=== PATIENT | male | born 1985 | race Caucasian/White ===

== ENCOUNTER 2018-01-20 05:16 | Emergency (ER) | payer BC ==
--- OUTSIDE RECORDS SUMMARY | 2018-01-20 05:18 | XMS REPORT | Continuity of Care Document ---
:1985 Author Organization [facility] Care Team Providers Name Role Phone MATTEO POPE Admitting Physician MATTEO POPE Attending Physician LISANDRO CHASE Primary Care Physician ROBERTO GASTELUM Consulting Physician Hospital Admission Diagnosis Code Admission Diagnosis Date 12091248 Dorsalgia Social History Element Code Description Smoking Start Date End Date Description Status Code System Smoking Status 531249292 Never smoker SNOMED-CT Problems Code Code System Problem Name Start Date End Date Status 51074287 SNOMED-CT Kidney stone 2018 Active LEFT TESTICLE & 11/11/2014 Active LEFT FLANK PAIN 215845564 SNOMED-CT Nausea 11/11/2014 Active 698294316 SNOMED-CT Asthma Unknown Active 34737499 SNOMED-CT Kidney stone Unknown Active Medications RxNorm Medication Dose Route Instructions Indications Start End Status Date Date 613826 Acetaminophen 300 1 tablet Oral orally every pain Active MG / Codeine 6 hours as Phosphate 15 MG needed. Oral Tablet 166770 Hyoscyamine 0.125 Oral orally every dyspepsia Active milligram 4 hours as needed. 987115 Acetaminophen 300 1 tablet Oral orally every No MG / Codeine 8 hours Longer Phosphate 30 MG Active Oral Tablet 641977 Hyoscyamine 0.125 Oral orally every dyspepsia No milligram 3 hours as Longer needed. Active 708777 Ondansetron 4 MG 4 Oral orally every No Oral Tablet milligram 8 hours (0 Longer hours) Active 036614 Sulfamethoxazole 1 tablet Oral orally 2 No 800 MG / times per day Longer Trimethoprim 160 Active MG Oral Tablet 548435 Tamsulosin 0.4 Oral orally every No hydrochloride 0.4 milligram day Longer MG Oral Capsule Active 559334 tramadol 50 Oral orally every No hydrochloride 50 milligram 4 hours (5 Longer MG Oral Tablet day) Active Allergies No Known Allergies Results Laboratory Results Order: CMP COMPREHENSIVE METABOLIC PANEL LOINC Test Result Flag Range Unit Date 2350-7 91 75-110 mg/dl 03/17/2017 1Glucose:MCnc:Pt 06:32 :Urine:Qn 3094-0 1Urea 12 6.0-17.0 mg/dl 03/17/2017 nitrogen:MCnc:Pt 06:32 :Ser/Plas:Qn 2160-0 1.1 0.4-1.2 mg/dl 03/17/2017 1Creatinine:MCnc 06:32 :Pt:Ser/Plas:Qn 2951-2 144 137-145 mmol/l 03/17/2017 1Sodium:SCnc:Pt: 06:32 Ser/Plas:Qn 2823-3 4 3.5-5.0 mmol/l 03/17/2017 1Potassium:SCnc: 06:32 Pt:Ser/Plas:Qn 2075-0 106 98-107 mmol/l 03/17/2017 1Chloride:SCnc:P 06:32 t:Ser/Plas:Qn 8-9 31 H 22-30 mmol/l 03/17/2017 1Carbon 06:32 dioxide:SCnc:Pt: Ser/Plas:Qn 85675-6 9.3 8.4-10.2 mg/dl 03/17/2017 1Calcium:MCnc:Pt 06:32 :Ser/Plas:Qn 2885-2 6.4 5.1-8.7 gm/dl 03/17/2017 1Protein:MCnc:Pt 06:32 :Ser/Plas:Qn 1751-7 3.7 3.5-4.6 gm/dl 03/17/2017 1Albumin:MCnc:Pt 06:32 :Ser/Plas:Qn 1A/G 1.4 1.1-2.2 % 03/17/2017 Ratio 06:32 1920-8 22 11-36 U/L 03/17/2017 1Aspartate 06:32 aminotransferase :CCnc:Pt:Ser/Jose Luis s:Qn 1742-6 32 11-40 U/L 03/17/2017 1Alanine 06:32 aminotransferase :CCnc:Pt:Ser/Jose Luis s:Qn 6768-6 53 47-114 U/L 03/17/2017 1Alkaline 06:32 phosphatase:CCnc :Pt:Ser/Plas:Qn 1975-2 0.5 0.2-1.2 mg/dl 03/17/2017 1Bilirubin:MCnc: 06:32 Pt:Ser/Plas:Qn 2.7 2.3-3.5 gm/dl 03/17/2017 1Globulin 06:32 9.5 8.4-10.2 mg/dl 03/17/2017 1Calcium, 06:32 Corrected Note: Various formulas exist for corrected serum calcium results, each yielding different values. This corrected result was based on the formula: Corrected Calcium=SerumCalcium + [0.8 * ( 4 - SerumAlbumin)] 1EGFR >60 mL/min/1.73m^2 03/17/2017 06:32 if 1EGFR >60 mL/min/1.73m^2 03/17/2017 06:32 if Non- Note: Estimated Glomerular Filtration Rate (eGFR) Reference Intervals Decision Points for 18 years and older and average body mass: >=60 Does not exclude kidney disease. 30 - 59 Suggests moderate chronic kidney disease and indicates the need for further investigation including assessment of proteinuria and cardiovascular factors. < 30 Usually indicates a need for referral for assessment and management of chronic kidney failure. Performing Lab Footnotes:[address] [place] [address] - [id number] - [address] [address] [facility] - MD: DIRECTOR JAMMIE HANNON__ ____ Order: HISTOLOGY RESULT LOINC Test Result Flag Range Unit Date 1 03/16/2017 08:[address] [place] [address] 03/16/2017 08:35 1 [place], [place] [address] 03/16/2017 08:35 1 Fax: 03/16/2017 08:35 1 [facility] #: [id number] Surgical First Assistant: 03/16/2017 08:35 Jammie Hannon M.D. 1 Surgical Pathology Consultation Report 03/16/2017 08:35 1 Patient Name: JAMMIE HORVATH Case #: 03/16/2017 08:35 S18-7 Med. Rec. #: [id number] Location: 03/16/2017 08:35 1 [id number] Surgery Date: 03/15/2017 : 03/16/2017 08:35 1985 (Age: 31) Account #: [id number] Received: 03/16/2017 Gender: 03/16/2017 08:35 M Copy to : Reported: 03/17/2017 1 Physician(s): Roberto Gastelum 03/16/2017 08:35 1 03/16/2017 08:35 1 Specimen(s) Received 03/16/2017 08:35 1 A: Bladder, washing 03/16/2017 08:35 1 Final Pathologic Diagnosis 03/16/2017 08:35 1 Bladder, washings (cytospin): 03/16/2017 08:35 1 - ADEQUATE FOR EVALUATION. 03/16/2017 08:35 1 - NO EVIDENCE OF HIGH-GRADE 03/16/2017 08:35 UROTHELIAL CARCINOMA. 1 - CHANGES COMPATIBLE WITH 03/16/2017 08:35 INSTRUMENTATION EFFECT AND REACTIVE 1 EPITHELIAL 03/16/2017 08:35 1 CHANGES ASSOCIATED WITH LITHIASIS. 03/16/2017 08:35 1 - POLARIZABLE CRYSTAL MATERIAL, 03/16/2017 08:35 ACUTE INFLAMMATORY CELLS AND BLOOD. 1 Electronically Signed Out 03/16/2017 08:35 1 ka/03/16/2017 Tata Arredondo MD, Board 03/16/2017 08:35 Certified in Anatomic Pathology 1 03/16/2017 08:35 1 Clinical History 03/16/2017 08:35 1 Kidney stone, ureteral stone. 03/16/2017 08:35 1 Gross Description 03/16/2017 08:35 1 The specimen is labeled bladder 03/16/2017 08:35 washings and consists of 7.5 mL of clear 1 yellow fluid from which cytospin is 03/16/2017 08:35 prepared. 1 Tata Arredondo MD, Board Certified 03/16/2017 08:35 in Anatomic Pathology 1 03/16/2017 08:35 1 Microscopic Description 03/16/2017 08:35 1 There are small monolayer sheets, 03/16/2017 08:35 pseudopapillary clusters and single 1 occasionally binucleated 03/16/2017 08:35 urothelial/umbrella cells. The urothelial cells 1 are 03/16/2017 08:35 1 characterized by a polygonal to 03/16/2017 08:35 columnar shape with relatively uniform 1 oval 03/16/2017 08:35 1 nuclei with smooth nuclear membranes, 03/16/2017 08:35 fine evenly distributed chromatin 1 with 03/16/2017 08:35 1 inconspicuous nucleoli and moderate 03/16/2017 08:35 amounts of cytoplasm. The background 1 shows 03/16/2017 08:35 1 scattered inflammatory cells, blood as 03/16/2017 08:35 well as polarizable crystal 1 material. 03/16/2017 08:35 1 Billing Fee Code(s): A; 72655 03/16/2017 08:35 Performing Lab Footnotes:[address] [place] [address] - [id number] - 1201 [facility] [address] [place] [address] [facility] - MD: DIRECTOR JAMMIE HANNON__ ____ Order: BMP BASIC METABOLIC PANEL LOINC Test Result Flag Range Unit Date 2350-7 156 H 75-110 mg/dl 03/16/2017 1Glucose:MCnc:P 07:12 t:Urine:Qn 3094-0 1Urea 14 6.0-17.0 mg/dl 03/16/2017 nitrogen:MCnc:P 07:12 t:Ser/Plas:Qn 2160-0 1.2 0.4-1.2 mg/dl 03/16/2017 1Creatinine:MCn 07:12 c:Pt:Ser/Plas:Q n 2951-2 141 137-145 mmol/l 03/16/2017 1Sodium:SCnc:Pt 07:12 :Ser/Plas:Qn 2823-3 3.9 3.5-5.0 mmol/l 03/16/2017 1Potassium:SCnc 07:12 :Pt:Ser/Plas:Qn 2075-0 104 98-107 mmol/l 03/16/2017 1Chloride:SCnc: 07:12 Pt:Ser/Plas:Qn 8-9 29 22-30 mmol/l 03/16/2017 1Carbon 07:12 dioxide:SCnc:Pt :Ser/Plas:Qn 92616-7 9.6 8.4-10.2 mg/dl 03/16/2017 1Calcium:MCnc:P 07:12 t:Ser/Plas:Qn 1EGFR >60 mL/min/1.73 03/16/2017 if m^2 07:12 [place] 1EGFR >60 mL/min/1.73 03/16/2017 if Non- m^2 07:12 [place] Note: Estimated Glomerular Filtration Rate (eGFR) Reference Intervals Decision Points for 18 years and older and average body mass: >=60 Does not exclude kidney disease. 30 - 59 Suggests moderate chronic kidney disease and indicates the need for further investigation including assessment of proteinuria and cardiovascular factors. < 30 Usually indicates a need for referral for assessment and management of chronic kidney failure. Performing Lab Footnotes:[address] [place] [address] - [id number] - [address] [address] [facility] - MD: DIRECTOR JAMMIE HANNON__ ____ Order: CBC PLATELET AUTO DIFF LOINC Test Result Flag Range Unit Date 58221-5 9.37 4.80-10.80 10^3/ul 03/16/2017 1Leukocytes^^correc 07:12 daija for nucleated erythrocytes:NCnc:P t:Bld:Qn:Automated count 789-8 4.54 L 4.70-6.10 10^6/ul 03/16/2017 1Erythrocytes:NCnc: 07:12 Pt:Bld:Qn:Automated count 718-7 14.1 14.0-18.0 gm/dl 03/16/2017 1Hemoglobin:MCnc:Pt 07:12 :Bld:Qn 4544-3 42.2 42.0-50.0 % 03/16/2017 1Hematocrit:VFr:Pt: 07:12 Bld:Qn:Automated count 787-2 93 80.0-94.0 fL 03/16/2017 1Erythrocyte mean 07:12 corpuscular volume:EntVol:Pt:RB C:Qn:Automated count 785-6 31.1 H 27.0-31.0 pg 03/16/2017 1Erythrocyte mean 07:12 corpuscular hemoglobin:EntMass: Pt:RBC:Qn:Automated count 786-4 33.4 33.0-37.0 gm/dl 03/16/2017 1Erythrocyte mean 07:12 corpuscular hemoglobin concentration:MCnc: Pt:RBC:Qn:Automated count 788-0 12 11.5-14.5 % 03/16/2017 1Erythrocyte 07:12 distribution width:Ratio:Pt:RBC: Qn:Automated count 777-3 356 130-400 10^3/ul 03/16/2017 1Platelets:NCnc:Pt: 07:12 Bld:Qn:Automated count 45891-1 1Platelet 10.8 A 7.4-10.4 fL 03/16/2017 mean 07:12 volume:EntVol:Pt:Bl d:Qn:Automated count Note: 'NOT MEASURED' RESULTS ARE DISPLAYED WHEN THE INSTRUMENT HAS A SUPPRESSED OR UNREPORTABLE RESULT. THIS WILL MOST OFTEN HAPPEN WITH THE MPV WHEN THERE IS AN ABNORMAL PLATELET DISTRIBUTION DUE TO A CRITICAL LOW VALUE OR PLATELET CLUMPING. THE RDW MAY BE SUPPRESSED IF THERE ARE MULTIPLE PEAKS PRESENT ON THE RBC HISTOGRAM. IN THIS CASE, A MANUAL REVIEW OF THE SLIDE WILL BE PERFORMED, AND RBC MORPHOLOGY WILL BE NOTED ON THE REPORT. 770-8 1Neutrophils/100 82.3 H 42.0-75.0 % 03/16/2017 leukocytes:NFr:Pt:Bld:Qn:Automated 07:12 count 736-9 1Lymphocytes/100 15.2 13.0-42.0 % 03/16/2017 leukocytes:NFr:Pt:Bld:Qn:Automated 07:12 count 5905-5 1Monocytes/100 1.9 L 4.0-14.0 % 03/16/2017 leukocytes:NFr:Pt:Bld:Qn:Automated 07:12 count 713-8 1Eosinophils/100 0.2 L 1.0-3.0 % 03/16/2017 leukocytes:NFr:Pt:Bld:Qn:Automated 07:12 count 706-2 1Basophils/100 0.1 L 1.0-3.0 % 03/16/2017 leukocytes:NFr:Pt:Bld:Qn:Automated 07:12 count 1IG% 0.3 0.0-0.4 % 03/16/2017 07:12 Performing Lab Footnotes:[address] [place] [address] - [id number] - [address] [place] [address] [facility] - MD: DIRECTOR JAMMIE HANNON__ ____ Order: CULTURE URINE COLONY COUNT LOINC Test Result Flag Range Unit Date Specimen: Urine Specimens 03/15/2017 13:40 Collected: 03/15/2017 13:40 03/15/2017 13:40 03/15/2017 13:40 Status: Final Last Updated: 03/15/2017 13:40 03/18/2017 07:08 03/15/2017 13:40 (1) URINE CS 03/15/2017 13:40 03/15/2017 13:40 03/15/2017 13:40 03/15/2017 13:40 Culture Result (Final) (Final) 03/15/2017 13:40 No Growth After 48 Hours 03/15/2017 13:40 03/15/2017 13:40 03/15/2017 13:40 Order: CBC - HEMOGRAM ONLY LOINC Test Result Flag Range Unit Date 01046-3 9.39 4.80-10.80 10^3/ul 03/14/2017 1Leukocytes^^correc 14:15 daija for nucleated erythrocytes:NCnc:P t:Bld:Qn:Automated count 789-8 4.74 4.70-6.10 10^6/ul 03/14/2017 1Erythrocytes:NCnc: 14:15 Pt:Bld:Qn:Automated count 718-7 15.1 14.0-18.0 gm/dl 03/14/2017 1Hemoglobin:MCnc:Pt 14:15 :Bld:Qn 4544-3 43.1 42.0-50.0 % 03/14/2017 1Hematocrit:VFr:Pt: 14:15 Bld:Qn:Automated count 787-2 90.9 80.0-94.0 fL 03/14/2017 1Erythrocyte mean 14:15 corpuscular volume:EntVol:Pt:RB C:Qn:Automated count 785-6 31.9 H 27.0-31.0 pg 03/14/2017 1Erythrocyte mean 14:15 corpuscular hemoglobin:EntMass: Pt:RBC:Qn:Automated count 786-4 35 33.0-37.0 gm/dl 03/14/2017 1Erythrocyte mean 14:15 corpuscular hemoglobin concentration:MCnc: Pt:RBC:Qn:Automated count 788-0 11.9 11.5-14.5 % 03/14/2017 1Erythrocyte 14:15 distribution width:Ratio:Pt:RBC: Qn:Automated count 777-3 354 130-400 10^3/ul 03/14/2017 1Platelets:NCnc:Pt: 14:15 Bld:Qn:Automated count 80090-2 1Platelet 10.4 A 7.4-10.4 fL 03/14/2017 mean 14:15 volume:EntVol:Pt:Bl d:Qn:Automated count Note: 'NOT MEASURED' RESULTS ARE DISPLAYED WHEN THE INSTRUMENT HAS A SUPPRESSED OR UNREPORTABLE RESULT. THIS WILL MOST OFTEN HAPPEN WITH THE MPV WHEN THERE IS AN ABNORMAL PLATELET DISTRIBUTION DUE TO A CRITICAL LOW VALUE OR PLATELET CLUMPING. THE RDW MAY BE SUPPRESSED IF THERE ARE MULTIPLE PEAKS PRESENT ON THE RBC HISTOGRAM. IN THIS CASE, A MANUAL REVIEW OF THE SLIDE WILL BE PERFORMED, AND RBC MORPHOLOGY WILL BE NOTED ON THE REPORT. Performing Lab Footnotes:[address] [place] [address] - [id number] - [address] [facility] [address] [place] [address] [facility] - MD: DIRECTOR JAMMIE HANNON__ ____ Order: UA URINALYSIS WITH MICROSCOPY LOINC Test Result Flag Range Unit Date 5778-6 YELLOW 03/14/2017 1Color:Type: 12:10 Pt:Urine:Nom 5767-9 CLEAR 03/14/2017 1Appearance: 12:10 Aper:Pt:Urin e:Nom 2349-9 NEGATIVE NEGATIVE 03/14/2017 1Glucose:ACn 12:10 c:Pt:Urine:O rd 5770-3 NEGATIVE NEGATIVE 03/14/2017 1Bilirubin:A 12:10 Cnc:Pt:Urine :Ord:Test strip 2514-8 NEGATIVE NEGATIVE 03/14/2017 1Ketones:ACn 12:10 c:Pt:Urine:O rd:Test strip 5811-5 1.010 A 1.005-1.030 03/14/2017 1Specific 12:10 gravity:Rden :Pt:Urine:Qn :Test strip 5794-3 LARGE A NEGATIVE 03/14/2017 1Hemoglobin: 12:10 ACnc:Pt:Urin e:Ord:Test strip 5803-2 7.0 A 4.5-8.0 03/14/2017 1pH:LsCnc:Pt 12:10 :Urine:Qn:Te st strip 07087-4 NEGATIVE NEGATIVE 03/14/2017 1Protein:ACn 12:10 c:Pt:Urine:O rd:Test strip 5818-0 0.2 0.2 03/14/2017 1Urobilinoge 12:10 n:ACnc:Pt:Ur ine:Ord:Test strip 5802-4 NEGATIVE NEGATIVE 03/14/2017 1Nitrite:ACn 12:10 c:Pt:Urine:O rd:Test strip 5799-2 NEGATIVE NEGATIVE 03/14/2017 1Leukocyte 12:10 esterase:ACn c:Pt:Urine:O rd:Test strip 5821-4 5-10 A 0-5 03/14/2017 1Leukocytes: 12:10 Naric:Pt:Uri ne sed:Qn:Micro scopy.light. HPF 62658-2 TNTC A 0-5 03/14/2017 1Erythrocyte 12:10 s:Naric:Pt:U rine sed:Qn:Micro scopy.light. [facility] [address]-8 None Seen A 0-10 03/14/2017 1Epithelial 12:10 cells.[place] us:Naric:Pt: Urine sed:Qn:Micro scopy.light. HPF 5769-5 None Seen None Seen,Trace 03/14/2017 1Bacteria:Na 12:10 hardeep:Pt:Urine sed:Qn:Micro scopy.light. HPF Performing Lab Footnotes:[address] [place] [address] - [id number] - [address] [facility] [address] [place] [address] [facility] - MD: DIRECTOR JAMMIE HANNON__ ____ Radiology Results Order: [id number] CT ABDOMEN/PELVIS W/O CONTRASTExam Completion Date:03/14/2017 12:16Procedure: CT ABDOMEN/PELVIS W/O CONTRAST Exam Date: 03/14/2017 12:16 PMOrdering Provider: JOSY KELLYClinical Indication: abd painComparison: NoneTechnique: Using a helical scanner, sequential axial imaging of the abdomen andpelvis was obtained without the administration of oral or IV contrast. The examextended from the level of the lung bases superiorly to the level of the pubicsymphysis inferiorly. 2-D sagittal and coronal reconstructed images wereobtained. This exam was performed according to the departmentaldose-optimization program which includes automated exposure control, adjustmentof the mA and/or kV according to patient size and/ or use of iterativereconstruction techniques.Findings: The lung bases are clear. No basilar consolidation or effusion.The liver is normal in size and density. Hepatic contour is normal. There are nohepatic masses. No intrahepatic ductal dilatation.The gallbladder is normal in size and density. There is no evidence ofcholelithiasis or cholecystitis by CT criteria.The spleen is normal in size and density. There are no intrinsic splenic masses.There is no evidence of a subcapsular hematoma or fluid collection.The pancreas is normal in size and density. There are no pancreaticcalcifications or masses. There is no pancreatic ductal dilatation.The adrenal glands are normal in size bilaterally. There are no adrenal massesbilaterally.The right kidneyis normal in size and shape.There is a calculus in an interpolar calyx of the right kidney anteriorlymeasuring 5 mm in diameter.No other right renal or ureteral calculi.The right renal masses or hydronephrosis.The left kidney is enlarged with mild perinephric stranding.There is a calculus in the distal left ureter at the UVJ measuring 5-6 mm indiameter.There is moderate left hydronephrosis and hydroureter.There is a calculus in an interpolar calyx anteriorly measuring 3 mm indiameter.No other left renal calculi.No left renal masses.Aorta is normal in size and diameter. There is no aneurysm. The IVCis normal in size and location.There is no lymphadenopathy in the abdomen, pelvis, or either inguinal region.There is no small or large bowel distention. There is no bowel thickening. Thereare no inflammatory changes in the abdomen or pelvis.The appendix is visualized and normal in diameter. There is no periappendicealsoft tissue stranding. No CT findings of appendicitis.Urinary bladder has a normal appearance.The prostate gland is normal in size.No inguinal masses.There is no skeletal lesion.IMPRESSION: 1. 5-6 mm calculus in the distal left ureter at the UVJ with moderate lefthydronephrosis and hydroureter. Postobstructive change of the left kidney.2. Bilateral nephrolithiasis.3. No other inflammatory change in the abdomen or pelvis.4. Exam otherwise negative.This final report was electronicallysigned by Dr Chavez Mcclain MD 03/14/201712:58 PMDictated By: CHAVEZ MCCLAIN.Date: 03/14/2017 13:04 Vital Signs Vitals Value Date Body Temperature 97 F 03/17/2017 Respiratory Rate 18 03/17/2017 O2% BldC Oximetry 96 03/17/2017 BP Systolic 129 mmHg 03/17/2017 BP Diastolic 76 mmHg 03/17/2017 Weight Measured 188.71 lbs 03/17/2017 BSA (Body Surface Area) 1.55527 03/14/2017 BMI (Body Mass Index) 30.6 03/14/2017 Height 66 in 03/14/2017 Plan of Care No data in the system Procedures Code Code System Procedure Name Target Site Date of Procedure FL RETROGRADE 03/15/2017 12:38 PYELOG [id number] ICD10 DILATION EMILY 03/15/2017 [place] DEVICE ENDO [id number] ICD10 EXTIRPATION 03/15/2017 MATTER LT URETER ENDO [id number] ICD10 FLUORO KIDNEYS 03/15/[address] 03/14/2017 13:04 ABDOMEN/PELVIS W/O CONTRAST Encounters Date Code Diagnosis Status [facility] - 302241961 HYDRONPHROS RENL&URETRL Active CALCUL OBST Immunizations Vaccine Code Code System Vaccine Name Date Status 88 CVX influenza Completed virus vaccine, NOS Functional Status Code Functional/Cognitive Code System Date Status Condition 239433949 No speech problem SNOMED-CT 03/17/2017 Active (situation) 160636366 Firm pressure touch, SNOMED-CT 03/16/2017 Active function (observable entity) 765709817 Orientated SNOMED-CT 03/17/2017 Active 592993672 Orientated SNOMED-CT 03/17/2017 Active 632544515 Orientated SNOMED-CT 03/17/2017 Active 555172592 Oriented to person SNOMED-CT 03/17/2017 Active 24150282 Normal vision SNOMED-CT 03/14/2017 Active Hospital Discharge Instructions PsychosocialAssistance RequiredNonePatient/Family ConcernsNoneEmotional StateCalmHousing TypeHouseEmotional StatePleasantDischarge InstructionsDischarge DiagnosisARF, renal stone, bilateral stent placementDate/ Time of Follow Up Appt # 11:15Physician Name for Follow Up Appt # 1Follow up with Dr. Gastelum on March 24 at 11:15am. Call for any questions or concerns. [phone] VaccineDoes Not Meet CriteriaIV Removed DateReferral RequiredNoneActivity Level>No driving or strenuous activity& #62;Drink LOTS of water>blood in urine is normal>some discomfort is normal>STENTS MUST BE REMOVED WITHIN 4 WEEKS!!OtherMedicationsContinue Present MedicationsPrescriptions GivenTake all medications as listed on your Discharge Medication List as directedDO NOT STOP taking your medicine(s) until directed by your doctor.DietRegularDischarge InstructionsPatient education providedFollow Up CareYesScheduled AppointmentWritten Discharge Plan given to the Patient at the time of discharge contains:Reason for hospitalizationDischarge medications including what medications to take, how to take them, and how to obtain the medication.Patient / family / caregiver given instructions on what to do if their condition changes.Coordination and planning for follow-up appointments that the patient can keep.Coordination and planning for follow-up of tests and studies for which confirmed results are not available at time of discharge.Influenza Vaccine NOT Given, State Reason(s) Below:Refused By Patient/CaregiverDischarge Instructions 2Wound / Incision CareNot ApplicableCore Measure / Get with the Guidelines (AMI/HF)Review Discharge Medications with patient for next dose timesSmoking Cessation TeachingPatient is nonsmoker or former smoker of greater than one yearDischarge EducationCopy of Discharge Medication ListDiscussed New / Changed MedicationsPersonal Belongings Returned To Patient/FamilyYesValuables Returned To Patient/FamilyYesPre-Admission Medications Returned To Patient/FamilyN/ APatient/Significant Other Education AcknowledgementI hereby acknowledge receiving the explanation of the attached instructions. I was able to ' teach back' my health information and education to my nurse and I understand what I was taught as indicated by my signature below.Person Receiving Discharge InstructionspatientDischarge Instructions Explained ToPatientDischarge SummaryDischarge StatusVital Signs StablePatient Transferred/ Discharged ToHomeMode Of DischargeAmbulatoryDischarge StatusAfebrileAccompanied ByRelativesDischarge StatusAdequate Diet/Liquid IntakeAdequate Urinary OutputAdequate Bowel FunctioningActivity Tolerated within Physical LimitsPain At DischargeDenies Pain
--- OUTSIDE RECORDS SUMMARY | 2018-01-20 05:18 | XMS REPORT ---
:1985 [facility] Address [address] [place] [address] Care Team Providers Name Role Phone MATTEO POPE Unavailable Unavailable Problems This patient has no known problems. Allergies, Adverse Reactions, Alerts This patient has no known allergies or adverse reactions. Medications This patient has no known medications. Results Test Description Test Time Test Comments Text Results Atomic Results Result Comments KIDNEY STONE ANALYSIS and IMAGE 2017-03-22 16:18:00 Test Item Value Reference Range Comments COLOR (test rprd=541192) Brown SIZE (test oefv=698984) 5x4x3 mm WEIGHT (test zpow=512753) 42.9 mg PHOTO (IMAGE) (test Comment Photograph will follow under mkgh=720435) separate cover. SPECIMEN TYPE (test Comment: Left ureteral aeoc=343587) PLEASE NOTE (test brcl=372178) Comment Calculi report with photograph will follow via computer, mail or center director delivery. AMMONIUM ACID URATE (test RAG CUTTING MACHINE FEEDER cpfm=716341) CA HYDROGEN PHOS. (test RAG CUTTING MACHINE FEEDER nljd=652304) CA OXALATE DIHYDRATE (test 30 % xbyc=033833) CA OXALATE MONOHYDR. (test 65 % yoik=252768) CALCIUM BILIRUBINATE (test RAG CUTTING MACHINE FEEDER uifq=354429) CALCIUM CARBONATE (test RAG CUTTING MACHINE FEEDER futb=074704) CALCIUM PHOSPHATE (test 05 % jjkd=430448) CELLULAR MATERIAL (test RAG CUTTING MACHINE FEEDER vyob=583453) CHOLESTEROL (test khdt=516252) RAG CUTTING MACHINE FEEDER COMMENT (test lloj=095546) RAG CUTTING MACHINE FEEDER COMMENT (test ktmu=002196) RAG CUTTING MACHINE FEEDER COMMENT: (test wmix=175315) Comment Physician questions regarding Calculi Analysis contact [facility] at: [phone]. COMPOSITION (test tmgo=034677) Comment Percentage (Represents the % composition) CYSTINE (test ijsy=156726) RAG CUTTING MACHINE FEEDER DRIED BLOOD (test oasm=052129) RAG CUTTING MACHINE FEEDER MAGNESIUM GLEN PHOS (test RAG CUTTING MACHINE FEEDER pmfs=453369) NEWBERYITE (test ojkc=310785) RAG CUTTING MACHINE FEEDER NIDUS (test wgkn=264175) No Nidus visualized SHELL (test esgy=317401) RAG CUTTING MACHINE FEEDER SODIUM ACID URATE (test RAG CUTTING MACHINE FEEDER yuzn=891883) SURFACE CRYSTALS (test RAG CUTTING MACHINE FEEDER tuvg=690286) TRIAMTERENE (test uxes=013377) RAG CUTTING MACHINE FEEDER URIC ACID DIHYDRATE (test RAG CUTTING MACHINE FEEDER gawt=499064) URIC ACID (test btte=602770) RAG CUTTING MACHINE FEEDER DISCLAIMER (test ppha=853880) Comment This test was developed and its performance characteristics determined by [facility]. It has not been cleared or approved by the Food and Drug Administration. LEFT URETERAL STONECULTURE, [id number] 07:08:00URINE CSSpecimen: Urine SpecimensCollected: 03/15/2017 13:40 Status: Final Last Updated: 2017 07:08 (1) URINE CS Culture Result (Final) (Final) No Growth After 48 HoursHISTOLOGY [id number] 13:11:[address] [place] [address]Wejnt: [phone] YSDF # : [id number] Audio/Video Technician: Jammie Hannon M.D.Surgical Pathology Consultation ReportPatient Name: JAMMIE HORVATH Case #: [id number] [facility]. Rec. #: [id number] Surgery Date: 03/15/2017 : 1985 (Age: 31) Received: 03/16/2017 Gender: M Copy to : Reported: 2017Physician(s): Roberto Nieves Specimen(s) ReceivedA: Bladder, washing Final Pathologic DiagnosisBladder, washings (cytospin):- ADEQUATE FOR EVALUATION.- NO EVIDENCE OF HIGH-GRADE UROTHELIAL CARCINOMA.- CHANGES COMPATIBLE WITH INSTRUMENTATION EFFECT AND REACTIVEEPITHELIALCHANGES ASSOCIATED WITH LITHIASIS.- POLARIZABLE CRYSTAL MATERIAL, ACUTE INFLAMMATORY CELLS AND BLOOD. Electronically Signed Out ka/03/16/2017 Tata Arredondo MD, Board Certified in Anatomic Pathology Clinical HistoryKidney stone, ureteral stone.Gross DescriptionThe specimen is labeled bladder washings and consists of 7.5 mL of clearyellow fluid from which cytospin is prepared. Tata Arredondo MD , Board Certified in Anatomic Pathology Microscopic DescriptionThere are small monolayer sheets, pseudopapillary clusters and singleoccasionally binucleated urothelial/umbrella cells. The urothelial cellsarecharacterized by a polygonal to columnar shape with relatively uniformovalnuclei with smooth nuclear membranes, fine evenly distributed chromatinwithinconspicuous nucleoli and moderate amounts of cytoplasm. The backgroundshowsscattered inflammatory cells, blood as well as polarizable crystalmaterial.Billing Fee Code(s): A; [id number], [id number] 07:45:00Specimen: Urine SpecimensCollected: 2017 19:08 Status: Final Last Updated: 03/17/2017 07:45 Culture Result (Final) (Final) No Growth After 48 [id number] 07:44:00 Test Item Value Reference Range Comments Glucose (test code=GLU) 91 mg/dl 75-110 BUN (test code=BUN) 12.0 mg/dl 6.0-17.0 Creatinine (test 1.1 mg/dl 0.4-1.2 code=CREA) Sodium (test code=NA) 144 mmol/l 137-145 Potassium (test code=K) 4.0 mmol/l 3.5-5.0 Chloride (test code=CL) 106 mmol/l 98-107 CO2 (test code=CO2) 31 mmol/l 22-30 Calcium (test code=CALC) 9.3 mg/dl 8.4-10.2 T Protein (test code=TP) 6.4 gm/dl 5.1-8.7 Albumin (test code=ALB) 3.7 gm/dl 3.5-4.6 A/G Ratio (test 1.4 % 1.1-2.2 code=AGRAT) AST (SGOT) (test 22 U/L 11-36 code=AST) ALT (SGPT) (test 32 U/L 11-40 code=ALT) Alkaline Phos (test 53 U/L 47-114 code=ALKP) Total Bilirubin (test 0.5 mg/dl 0.2-1.2 code=TBIL) Globulin (test 2.7 gm/dl 2.3-3.5 code=GLOBU) Calcium, Corrected (test 9.5 mg/dl 8.4-10.2 Various formulas exist for code=CALCCORR) corrected serum calcium results, each yielding different values. This corrected result was based on the formula: Corrected Calcium=SerumCalcium + [0.8 * ( 4 - SerumAlbumin)] EGFR if >60 (test code=EGFRAA) mL/min/1.73m\\S\\2 EGFR if Non- >60 Estimated Glomerular Filipino (test mL/min/1.73m\\S\\2 Filtration Rate (eGFR) code=EGFRNA) Reference Intervals Decision Points for 18 years and older and average body mass: >=60 Does not exclude kidney disease. 30 - 59 Suggests moderate chronic kidney disease and indicates the need for further investigation including assessment of proteinuria and cardiovascular factors. < 30 Usually indicates a need for referral for assessment and management of chronic kidney failure. CBC WITH AUTO [id number] 08:20:00 Test Item Value Reference Range Comments WBC (test code=WBC) 9.37 10\\S\\3/ul 4.80-10.80 RBC (test code=RBC) 4.54 10\\S\\6/ul 4.70-6.10 Hemoglobin (test code=HGB) 14.1 gm/dl 14.0-18.0 Hematocrit (test code=HCT) 42.2 % 42.0-50.0 MCV (test code=MCV) 93.0 fL 80.0-94.0 MCH (test code=MCH) 31.1 pg 27.0-31.0 MCHC (test code=MCHC) 33.4 gm/dl 33.0-37.0 RDW (test code=RDWVC) 12.0 % 11.5-14.5 Platelet (test code=PLT) 356 10\\S\\3/ul 130-400 MPV (test code=MPV) 10.8 fL 7.4-10.4 "NOT MEASURED" RESULTS ARE DISPLAYED WHEN THE INSTRUMENT HAS [...] MORPHOLOGY WILL BE NOTED ON THE REPORT. NE% (test code=NE) 82.3 % 42.0-75.0 LY% (test code=LY) 15.2 % 13.0-42.0 MO% (test code=MO) 1.9 % 4.0-14.0 EO% (test code=EO) 0.2 % 1.0-3.0 BA% (test code=BA) 0.1 % 1.0-3.0 IG% (test code=IG%) 0.3 % 0.0-0.4 CBC AUTO [id number] 08:18:00 Test Item Value Reference Range Comments Glucose (test code=GLU) 156 mg/dl 75-110 BUN (test code=BUN) 14.0 mg/dl 6.0-17.0 Creatinine (test 1.2 mg/dl 0.4-1.2 code=CREA) Sodium (test code=NA) 141 mmol/l 137-145 Potassium (test code=K) 3.9 mmol/l 3.5-5.0 Chloride (test code=CL) 104 mmol/l 98-107 CO2 (test code=CO2) 29 mmol/l 22-30 Calcium (test code=CALC) 9.6 mg/dl 8.4-10.2 EGFR if >60 (test code=EGFRAA) mL/min/1.73m\\S\\2 EGFR if Non- >60 Estimated Glomerular Filipino (test mL/min/1.73m\\S\\2 Filtration Rate (eGFR) code=EGFRNA) Reference Intervals Decision Points for 18 years and older and average body mass: >=60 Does not exclude kidney disease. 30 - 59 Suggests moderate chronic kidney disease and indicates the need for further investigation including assessment of proteinuria and cardiovascular factors. < 30 Usually indicates a need for referral for assessment and management of chronic kidney failure. [id number] 07:17:00 Test Item Value Reference Range Comments Glucose (test code=GLU) 94 mg/dl 75-110 BUN (test code=BUN) 18.0 mg/dl 6.0-17.0 Creatinine (test 1.9 mg/dl 0.4-1.2 code=CREA) Sodium (test code=NA) 142 mmol/l 137-145 Potassium (test code=K) 4.6 mmol/l 3.5-5.0 Chloride (test code=CL) 106 mmol/l 98-107 CO2 (test code=CO2) 28 mmol/l 22-30 Calcium (test code=CALC) 9.2 mg/dl 8.4-10.2 EGFR if 54 (test code=EGFRAA) mL/min/1.73m\\S\\2 EGFR if Non- 45 Estimated Glomerular Filipino (test mL/min/1.73m\\S\\2 Filtration Rate (eGFR) code=EGFRNA) Reference Intervals Decision Points for 18 years and older and average body mass: >=60 Does not exclude kidney disease. 30 - 59 Suggests moderate chronic kidney disease and indicates the need for further investigation including assessment of proteinuria and cardiovascular factors. < 30 Usually indicates a need for referral for assessment and management of chronic kidney failure. CBC WITH AUTO [id number] 07:06:00 Test Item Value Reference Range Comments WBC (test code=WBC) 7.89 10\\S\\3/ul 4.80-10.80 RBC (test code=RBC) 4.48 10\\S\\6/ul 4.70-6.10 Hemoglobin (test code=HGB) 14.1 gm/dl 14.0-18.0 Hematocrit (test code=HCT) 41.3 % 42.0-50.0 MCV (test code=MCV) 92.2 fL 80.0-94.0 MCH (test code=MCH) 31.5 pg 27.0-31.0 MCHC (test code=MCHC) 34.1 gm/dl 33.0-37.0 RDW (test code=RDWVC) 11.9 % 11.5-14.5 Platelet (test code=PLT) 305 10\\S\\3/ul 130-400 MPV (test code=MPV) 10.7 fL 7.4-10.4 "NOT MEASURED" RESULTS ARE DISPLAYED WHEN THE INSTRUMENT HAS [...] MORPHOLOGY WILL BE NOTED ON THE REPORT. NE% (test code=NE) 61.8 % 42.0-75.0 LY% (test code=LY) 26.0 % 13.0-42.0 MO% (test code=MO) 9.5 % 4.0-14.0 EO% (test code=EO) 2.0 % 1.0-3.0 BA% (test code=BA) 0.4 % 1.0-3.0 IG% (test code=IG%) 0.3 % 0.0-0.4 [id number] 14:40:00 Test Item Value Reference Range Comments Glucose (test code=GLU) 84 mg/dl 75-110 BUN (test code=BUN) 21.0 mg/dl 6.0-17.0 Creatinine (test 1.7 mg/dl 0.4-1.2 code=CREA) Sodium (test code=NA) 142 mmol/l 137-145 Potassium (test code=K) 4.5 mmol/l 3.5-5.0 Chloride (test code=CL) 102 mmol/l 98-107 CO2 (test code=CO2) 27 mmol/l 22-30 Calcium (test code=CALC) 10.2 mg/dl 8.4-10.2 T Protein (test code=TP) 7.2 gm/dl 5.1-8.7 Albumin (test code=ALB) 4.4 gm/dl 3.5-4.6 A/G Ratio (test 1.6 % 1.1-2.2 code=AGRAT) AST (SGOT) (test 54 U/L 11-36 code=AST) ALT (SGPT) (test 43 U/L 11-40 code=ALT) Alkaline Phos (test 68 U/L 47-114 code=ALKP) Total Bilirubin (test 0.7 mg/dl 0.2-1.2 code=TBIL) Globulin (test 2.8 gm/dl 2.3-3.5 code=GLOBU) Calcium, Corrected (test 9.9 mg/dl 8.4-10.2 Various formulas exist for code=CALCCORR) corrected serum calcium results, each yielding different values. This corrected result was based on the formula: Corrected Calcium=SerumCalcium + [0.8 * ( 4 - SerumAlbumin)] EGFR if >60 (test code=EGFRAA) mL/min/1.73m\\S\\2 EGFR if Non- 51 Estimated Glomerular Filipino (test mL/min/1.73m\\S\\2 Filtration Rate (eGFR) code=EGFRNA) Reference Intervals Decision Points for 18 years and older and average body mass: >=60 Does not exclude kidney disease. 30 - 59 Suggests moderate chronic kidney disease and indicates the need for further investigation including assessment of proteinuria and cardiovascular factors. < 30 Usually indicates a need for referral for assessment and management of chronic kidney failure. CBC (HEMOGRAM ONLY)2017-03-14 14:27:00 Test Item Value Reference Range Comments WBC (test code=WBC) 9.39 10\\S\\3/ul 4.80-10.80 RBC (test code=RBC) 4.74 10\\S\\6/ul 4.70-6.10 Hemoglobin (test code=HGB) 15.1 gm/dl 14.0-18.0 Hematocrit (test code=HCT) 43.1 % 42.0-50.0 MCV (test code=MCV) 90.9 fL 80.0-94.0 MCH (test code=MCH) 31.9 pg 27.0-31.0 MCHC (test code=MCHC) 35.0 gm/dl 33.0-37.0 RDW (test code=RDWVC) 11.9 % 11.5-14.5 Platelet (test code=PLT) 354 10\\S\\3/ul 130-400 MPV (test code=MPV) 10.4 fL 7.4-10.4 "NOT MEASURED" RESULTS ARE DISPLAYED WHEN THE INSTRUMENT HAS [...] MORPHOLOGY WILL BE NOTED ON THE REPORT. CT ABDOMEN/PELVIS W/O [id number] 13:04:49NPO 4 hours. Do not withhold medsProcedure: CT ABDOMEN/PELVIS W/O CONTRASTExam Date: 03/14/2017 12:16 PMOrdering Provider: JOSY Diainical Indication: abd painComparison: NoneTechnique: Using a helical scanner, sequential axial imaging of the abdomen andpelvis was obtained without the administration of oral or IV contrast.The examextended from the level of the lung bases superiorly to the level of the pubicsymphysis inferiorly. 2-D sagittal and coronal reconstructed images wereobtained. This exam was performed accordingto the departmentaldose- optimization program which includes automated exposure control, adjustmentofthe mA and/or kV according to patient size and/or use of iterativereconstruction techniques.Findings:The lung bases are clear. No basilar consolidation [...] bilaterally. There are no adrenal massesbilaterally.The right kidney is normal in size and shape.There is a calculus in an interpolar calyx of the right kidney anteriorlymeasuring 5 mm in diameter.No other right renal or ureteral calculi.The right renal masses or hydronephrosis.The left kidney is enlarged with mild perinephric stranding.There is a calculus in the distal left ureter at the UVJ measuring 5- 6 mm indiameter.There is moderate left hydronephrosis and hydroureter.There is a calculus in an interpolar calyx anteriorly measuring 3 mm indiameter.No other left renal calculi.No left renal masses.Aorta is normal in size and diameter. There is no aneurysm.The IVC is normalin size and location.There is no lymphadenopathy in [...] in size.No inguinal masses.There is no skeletal lesion.IMPRESSION:1. 5-6 mm calculus in the distal left ureter at the UVJ with moderate lefthydronephrosis and hydroureter. Postobstructive change of the left kidney.2. Bilateral nephrolithiasis.3. No other inflammatory change in the abdomen or pelvis.4. Exam otherwise negative.This final report was electronically signed by Dr Chavez Mcclain MD 03/14/201712:58 PMDictated By: CHAVEZ MCCLAIN.Date: 03/14/2017 13:04URINALYSIS WITH [id number] 12: 48:00 Test Item Value Reference Range Comments Color (test code=UCOLR) YELLOW Clarity (test code=UCLAR) CLEAR Glucose (test code=UGLUC) NEGATIVE NEGATIVE Bilirubin (test code=UBILI) NEGATIVE NEGATIVE Ketones (test code=UKET) NEGATIVE NEGATIVE Specific [place] (test code=USPGR) 1.010 1.005-1.030 Blood (test code=UBLD) LARGE NEGATIVE PH (test code=UPH) 7.0 4.5-8.0 Protein (test code=UPROT) NEGATIVE NEGATIVE Urobilinogen (test code=U UROB) 0.2 >0.2 Nitrite (test code=UNITR) NEGATIVE NEGATIVE Leukocyte Esterase (test code=ULEUK) NEGATIVE NEGATIVE WBC (test code=WBCUR) 5-10 0-5 RBC (test code=RBCUR) TNTC 0-5 Epithial Cells (test code=U EPI) None Seen 0-10 Bacteria (test code=UBACT) None Seen None Seen,Trace
[2018-01-20] MEDS ORDERED: FENTANYL CITR 100 MCG/2 ML ONE (05:46)
[2018-01-20] MEDS ORDERED: KETOROLAC 30 MG/ML INJ ONE (05:47)
[2018-01-20 06:09] LABS: Albumin 4.4 g/dL (3.4-5.0); Bilirubin Direct 0.2 mg/dL (0-0.2); Bilirubin Total 0.7 mg/dL (0.2-1.0); Potassium 3.4 mmol/L (3.5-5.1); Protein, Total 7.8 g/dL (6.4-8.2)
[2018-01-20] MEDS ORDERED: HYDROMORPHONE HCL 1 MG/ML INJ ONE ×2 (07:17→09:37)
[2018-01-20 07:26] LABS: Urine Blood 3+ (NEG); Urine Glucose NEGATIVE (NEG); Urine Protein 2+ (NEG)
[2018-01-20 07:34] LABS: Urine Bacteria <20 /HPF (NONE SEEN); Urine Culture Reflex Order REFLEXED; Urine Mucus HEAVY /HPF (NONE SEEN); Urine RBC >50 /HPF (NONE SEEN)
--- NOTE | 2018-01-20 07:42 | RAD REPORT ---
EXAM DESCRIPTION: CT - Stone Protocol - 01/20/2018 7:19 am CLINICAL HISTORY: Abdominal pain. Right flank pain and vomiting COMPARISON: None. TECHNIQUE: Computed axial tomography of the abdomen pelvis was obtained without oral or IV contrast. Lack of IV and oral contrast limits evaluation of solid organs, bowel, and vessels. Coronal reformat daija images were obtained and reviewed. All CT scans are performed using dose optimization technique as appropriate and may include automated exposure control or mA/KV adjustment according to patient size. FINDINGS: Multiple small right renal calculi are present. Moderate right hydronephrosis is present. Right ureter is dilated. A 6 millimeter calculus is present within mid right ureter Hounsfield unit 1 199 The liver, spleen, pancreas and adrenals appear grossly normal There is no evidence of diverticulitis. The appendix appears normal A small umbilical hernia. Small right inguinal hernia IMPRESSION: 6 millimeter calculus mid right ureter resulting in moderate right hydronephrosis
--- NOTE | 2018-01-20 08:47 | ER ---
Nurse's Notes [facility] Name: Jose E Shah Age: 32 yrs Sex: Male : 1985 Arrival Date: 01/20/2018 Time: 05:18 Bed 15 Private MD: Diagnosis: Hydronephrosis with renal and ureteral calculous obstruction Presentation: 01/20 05:29 Presenting complaint: Patient states: sudden right flank pain started 20 minutes ago. rr5 pain score of 10/10. feels nauseated and vomited 2x. Transition of care: patient was not received from another setting of care. Onset of symptoms was January 20, 2018. Risk Assessment: Do you want to hurt yourself or someone else? Patient reports no desire to harm self or others. Initial Sepsis Screen: Does the patient meet any 2 criteria? No. Patient's initial sepsis screen is negative. Does the patient have a suspected source of infection? No. Patient's initial sepsis screen is negative. Care prior to arrival: Medication(s) given: Motrin. 05:29 Method Of Arrival: Ambulatory rr5 05:29 Acuity: DEWAYNE 3 rr5 Triage Assessment: 05:34 General: Appears uncomfortable, ill, Behavior is cooperative. Pain: Complains of pain rr5 in right flank Pain does not radiate. Pain currently is 10 out of 10 on a pain scale. Quality of pain is described as aching, Pain began 30 min ago. Is intermittent. EENT: No signs and/or symptoms were reported regarding the EENT system. Neuro: Level of Consciousness is awake, alert, obeys commands, Oriented to person, place, time, situation. Cardiovascular: Capillary refill < 3 seconds Patient's skin is warm and dry. Respiratory: Airway is patent Respiratory effort is even, unlabored. GI: No signs and/or symptoms were reported involving the gastrointestinal system. : Reports right flank pain. Derm: No signs and/or symptoms reported regarding the dermatologic system. Skin is intact, Skin is dry, Skin temperature is warm. Musculoskeletal: Capillary refill < 3 seconds, Range of motion: intact in all extremities. Historical: - Allergies: 05:33 No Known Allergies; rr5 - PMHx: 05:33 Kidney stones; rr5 - PSHx: 05:50 Lithotripsy; Kidney stents; rr5 - Immunization history:: Adult Immunizations not up to date, Flu vaccine is not up to date. - Social history:: Smoking status: Patient/guardian denies using tobacco. - Ebola Screening: : Patient negative for fever greater than or equal to 101.5 degrees Fahrenheit, and additional compatible Ebola Virus Disease symptoms Patient denies exposure to infectious person Patient denies travel to an Ebola-affected area in the 21 days before illness onset. - Family history:: not pertinent. - Hospitalizations: : No recent hospitalization is reported. Screenin:00 Abuse screen: Denies threats or abuse. Denies injuries from another. Nutritional rr5 screening: No deficits noted. Tuberculosis screening: No symptoms or risk factors identified. Fall Risk IV access (20 points). Mental Status- Oriented to own ability (0 pts). Total De [place] Cruz Fall Scale indicates No Risk (0-24 pts). Assessment: 05:29 General: Appears distressed, uncomfortable, ill, Behavior is cooperative, appropriate rr5 for age. Pain: Complains of pain in right flank Pain does not radiate. Pain at worst was 10 out of 10 on a pain scale. Quality of pain is described as aching, Pain began 30 min ago. Is Aggravated by increased activity. 05:29 Neuro: Level of Consciousness is awake, alert, obeys commands, Oriented to person, rr5 place, time, situation. Cardiovascular: Reports nausea, vomiting, Capillary refill < 3 seconds Patient's skin is warm and dry. Respiratory: Airway is patent. GI: Bowel sounds present X 4 quads. Abd is soft X 4 quads. : Reports right flank pain. EENT: No signs and/or symptoms were reported regarding the EENT system. Derm: Skin is intact, Skin is dry, Skin is pink, warm \T\ dry. Musculoskeletal: No signs and/or symptoms reported regarding the musculoskeletal system. 06:51 Reassessment: Patient is alert, oriented x 3, equal unlabored respirations, skin rr5 warm/dry/pink. patient reported that the pain going back again. dr. jacob informed plan to do ct scan. 07:15 General: Appears uncomfortable, Behavior is calm, cooperative. Pain: Complains of pain aa5 in right flank Pain radiates to right groin Pain currently is 8 out of 10 on a pain scale. 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 Neuro: Level of Consciousness is awake, alert, obeys commands, Oriented to person, place, time, situation. Cardiovascular: Heart tones S1 S2 present Rhythm is regular. Respiratory: Airway is patent Respiratory effort is even, unlabored, Respiratory pattern is regular, symmetrical. GI: Abdomen is round non-distended, Bowel sounds present X 4 quads. Abd is soft and non tender X 4 quads. Patient currently denies nausea. : Urine is dark yellow. EENT: No signs and/or symptoms were reported regarding the EENT system. Derm: Skin is pink, warm \T\ dry. Musculoskeletal: Range of motion: intact in all extremities. 07:25 Reassessment: Patient and/or family updated on plan of care and expected duration. Pain aa5 level reassessed. Patient is alert, oriented x 3, equal unlabored respirations, skin warm/dry/pink. Patient states feeling better. Awaiting CT scan results, pt notified of wait time. . Pain: Pain currently is 2 out of 10 on a pain scale. 08:30 Reassessment: Patient and/or family updated on plan of care and expected duration. Pain aa5 level reassessed. Patient is alert, oriented x 3, equal unlabored respirations, skin warm/dry/pink. Pt currently resting in bed with eyes closed. . Pain: Pain currently is 2 out of 10 on a pain scale. 09:23 Reassessment: Patient and/or family updated on plan of care and expected duration. Pain aa5 level reassessed. Patient is alert, oriented x 3, equal unlabored respirations, skin warm/dry/pink. Pt requesting pain medication, Dr. Bañuelos notified. NS bolus infusing at this time, awaiting for bolus to finish for d/c home, pt notified of wait time. Pt tolerating iced water well. . Pain: Pain currently is 4 out of 10 on a pain scale. 10:20 Reassessment: Patient and/or family updated on plan of care and expected duration. Pain aa5 level reassessed. Patient is alert, oriented x 3, equal unlabored respirations, skin warm/dry/pink. Patient states feeling better. Pain: Pain currently is 2 out of 10 on a pain scale. 11:00 Reassessment: Patient and/or family updated on plan of care and expected duration. Pain aa5 level reassessed. Patient is alert, oriented x 3, equal unlabored respirations, skin warm/dry/pink. Pt tolerating water well. Pt awaiting for NS bolus to finish for d/c home. . Pain: Pain currently is 6 out of 10 on a pain scale. Vital Signs: 05:34 BP 173 / 96; Pulse 86; Resp 22; Temp 97.6(O); Pulse Ox 99% on R/A; Weight 81.65 kg; rr5 Height 5 ft. 7 in. (170.18 cm); Pain 10/10; 06:25 BP 125 / 98; Pulse 50; Resp 16; Pulse Ox 97% on R/A; Pain 5/10; rr5 07:12 BP 130 / 84; Pulse 60; Resp 18 S; Temp 98.0(O); Pulse Ox 98% on R/A; Pain 8/10; aa5 07:54 BP 127 / 85; Pulse 64; Resp 14 S; Pulse Ox 96% on R/A; Pain 2/10; aa5 09:30 BP 120 / 81; Pulse 64; Resp 16 S; Pulse Ox 98% on R/A; aa5 10:20 BP 118 / 79; Pulse 60; Resp 14 S; Pulse Ox 99% on R/A; aa5 11:00 BP 111 / 62; Pulse 62; Resp 16 S; Temp 98.0(TE); Pulse Ox 99% on R/A; aa5 05:34 Body Mass Index 28.19 (81.65 kg, 170.18 cm) rr5 ED Course: 05:18 Patient arrived in ED. es 05:26 Alberto Jacob MD is Attending Physician. wa 05:29 Shlomo Chirinos RN is Primary Nurse. rr5 05:32 Triage completed. rr5 05:35 Arm band placed on left wrist. Emesis basin given. rr5 05:40 Initial lab(s) drawn, by me, sent to lab. Inserted saline lock: 20 gauge in right aa1 antecubital area, using aseptic technique. Blood collected. 06:00 Patient has correct armband on for positive identification. Bed in low position. Call rr5 light in reach. Side rails up X 1. 06:00 Pulse ox on. NIBP on. Door closed. Lights dimmed. rr5 07:03 Report given to esvin DIAL. rr5 07:03 Report received from YOJANA Keenan. aa5 07:20 CT Stone Protocol In Process Unspecified. EDMS 07:25 No provider procedures requiring assistance completed. aa5 07:33 Attending Physician role handed off by Alberto Jacob MD fran 07:33 Dickson Bañuelos MD is Attending Physician. fran 08:45 Erick Junior MD is Referral Physician. fran 09:17 X-ray completed. Portable x-ray completed in exam room. Patient tolerated procedure ml well. 09:18 Abdomen 1 View (KUB) XRAY In Process Unspecified. EDMS 11:30 IV discontinued, intact, bleeding controlled, No redness/swelling at site. Pressure aj dressing applied. Administered Medications: 05:45 Drug: fentaNYL (PF) 75 mcg Route: IVP; Site: right antecubital; rr5 06:47 Follow up: Response: No adverse reaction; Pain is decreased rr5 05:50 Drug: TORadol 30 mg Route: IVP; Site: right antecubital; rr5 06:47 Follow up: Response: No adverse reaction; Pain is decreased rr5 07:13 Drug: Dilaudid 1 mg Route: IVP; Site: right antecubital; aa5 07:25 Follow up: Response: No adverse reaction; Pain is decreased aa5 09:15 Drug: NS 0.9% 1000 ml Route: IV; Rate: 1 bolus; Site: right antecubital; aa5 11:30 Follow up: Response: No adverse reaction; IV Status: Completed infusion; IV Intake: aj 700ml 09:15 Drug: NS 0.9% 1000 ml Route: IV; Rate: 1 bolus; Site: right antecubital; aa5 11:30 Follow up: IV Status: Completed infusion; IV Intake: 1000ml aj 09:15 Drug: Rocephin - (cefTRIAXone) 1 grams Route: IVPB; Infused Over: 30 mins; Site: right aa5 antecubital; 09:15 Drug: Flomax 0.4 mg Route: PO; aa5 11:00 Follow up: Response: No adverse reaction aa5 09:33 Drug: Dilaudid 1 mg Route: IVP; Site: right antecubital; aa5 09:40 Follow up: Response: No adverse reaction aa5 Intake: 11:30 IV: 1000ml; Total: 1000ml. aj 11:30 IV: 700ml; Total: 1700ml. kathryn Outcome: 08:45 Discharge ordered by . fran 11:30 Discharged to home ambulatory, with family. kathryn 11:30 Condition: improved 11:30 Discharge instructions given to patient, family, Instructed on discharge instructions, follow up and referral plans. medication usage, Demonstrated understanding of instructions, follow-up care, medications, Prescriptions given X 4. 11:31 Patient left the ED. aj Signatures: Dispatcher [employer] Shantel Gayle RN RN aa1 Dot Solis RN RN Dickson Rodas MD MD cha Salyer, Latonya Hilliard Audri RN RN aa5 Alberto Jacob MD MD wa Roque, Raymond, RN RN rr5 Corrections: (The following items were deleted from the chart) 05:51 05:50 General: Appears rr5 rr5 09:25 09:15 NS 0.9% 1000 ml IV at 1 bolus in left antecubital aa5 aa5 11:40 09:23 Reassessment: Patient and/or family updated on plan of care and expected aa5 duration. Pain level reassessed. Patient is alert, oriented x 3, equal unlabored respirations, skin warm/dry/pink. Pt requesting pain medication, Dr. Bañuelos notified . aa5
--- NOTE | 2018-01-20 08:47 | EDPHYS ---
Physician Documentation [facility] Name: Jose E Shah Age: 32 yrs Sex: Male : 1985 Arrival Date: 01/20/2018 Time: 05:18 Bed 15 Private MD: ED Physician Dickson Bañuelos HPI: 01/20 06:58 This 32 yrs old Male presents to ER via Ambulatory with complaints of wa Possible Kidney Stone. 06:58 The patient complains of pain in the right flank. The pain radiates to the R groin. wa Onset: The symptoms/episode began/occurred just prior to arrival. Modifying factors: The symptoms are alleviated by nothing. the symptoms are aggravated by nothing. Associated signs and symptoms: Pertinent positives: vomiting, Pertinent negatives: diarrhea, dysuria, fever. Severity of pain: At its worst the pain was moderate in the emergency department the pain is actually worse markedly. The patient has experienced similar episodes in the past, a few times, h/o kidney stones. The patient has not recently seen a physician. Historical: - Allergies: 05:33 No Known Allergies; rr5 - PMHx: 05:33 Kidney stones; rr5 - PSHx: 05:50 Lithotripsy; Kidney stents; rr5 - Immunization history:: Adult Immunizations not up to date, Flu vaccine is not up to date. - Social history:: Smoking status: Patient/guardian denies using tobacco. - Ebola Screening: : Patient negative for fever greater than or equal to 101.5 degrees Fahrenheit, and additional compatible Ebola Virus Disease symptoms Patient denies exposure to infectious person Patient denies travel to an Ebola-affected area in the 21 days before illness onset. - Family history:: not pertinent. - Hospitalizations: : No recent hospitalization is reported. ROS: 06:59 Constitutional: Negative for fever, chills, and weight loss, Eyes: Negative for injury, wa pain, redness, and discharge, ENT: Negative for injury, pain, and discharge, Neck: Negative for injury, pain, and swelling, Cardiovascular: Negative for chest pain, palpitations, and edema, Respiratory: Negative for shortness of breath, cough, wheezing, and pleuritic chest pain, Back: Negative for injury and pain, : Negative for injury, bleeding, discharge, and swelling, MS/Extremity: Negative for injury and deformity, Skin: Negative for injury, rash, and discoloration, Neuro: Negative for headache, weakness, numbness, tingling, and seizure. 06:59 Abdomen/GI: Positive for R flank pain. 06:59 All other systems are negative. Exam: 07:00 Constitutional: This is a well developed, well nourished patient who is awake, alert, wa and in no acute distress. Head/Face: Normocephalic, atraumatic. Eyes: Pupils equal round and reactive to light, extra-ocular motions intact. Lids and lashes normal. Conjunctiva and sclera are non-icteric and not injected. Cornea within normal limits. Periorbital areas with no swelling, redness, or edema. ENT: Nares patent. No nasal discharge, no septal abnormalities noted. Tympanic membranes are normal and external auditory canals are clear. Oropharynx with no redness, swelling, or masses, exudates, or evidence of obstruction, uvula midline. Mucous membranes moist. Neck: Trachea midline, no thyromegaly or masses palpated, and no cervical lymphadenopathy. Supple, full range of motion without nuchal rigidity, or vertebral point tenderness. No Meningismus. Chest/axilla: Normal chest wall appearance and motion. Nontender with no deformity. No lesions are appreciated. Cardiovascular: Regular rate and rhythm with a normal S1 and S2. No gallops, murmurs, or rubs. Normal PMI, no JVD. No pulse deficits. Respiratory: Lungs have equal breath sounds bilaterally, clear to auscultation and percussion. No rales, rhonchi or wheezes noted. No increased work of breathing, no retractions or nasal flaring. Abdomen/GI: Soft, non-tender, with normal bowel sounds. No distension or tympany. No guarding or rebound. No evidence of tenderness throughout. Back: No spinal tenderness. No costovertebral tenderness. Full range of motion. Male : Normal genitalia with no discharge or lesions. Skin: Warm, dry with normal turgor. Normal color with no rashes, no lesions, and no evidence of cellulitis. MS/ Extremity: Pulses equal, no cyanosis. Neurovascular intact. Full, normal range of motion. Neuro: Awake and alert, GCS 15, oriented to person, place, time, and situation. Cranial nerves II-XII grossly intact. Motor strength 5/5 in all extremities. Sensory grossly intact. Cerebellar exam normal. Normal gait. Psych: Awake, alert, with orientation to person, place and time. Behavior, mood, and affect are within normal limits. Vital Signs: 05:34 BP 173 / 96; Pulse 86; Resp 22; Temp 97.6(O); Pulse Ox 99% on R/A; Weight 81.65 kg; rr5 Height 5 ft. 7 in. (170.18 cm); Pain 10/10; 06:25 BP 125 / 98; Pulse 50; Resp 16; Pulse Ox 97% on R/A; Pain 5/10; rr5 07:12 BP 130 / 84; Pulse 60; Resp 18 S; Temp 98.0(O); Pulse Ox 98% on R/A; Pain 8/10; aa5 07:54 BP 127 / 85; Pulse 64; Resp 14 S; Pulse Ox 96% on R/A; Pain 2/10; aa5 09:30 BP 120 / 81; Pulse 64; Resp 16 S; Pulse Ox 98% on R/A; aa5 10:20 BP 118 / 79; Pulse 60; Resp 14 S; Pulse Ox 99% on R/A; aa5 11:00 BP 111 / 62; Pulse 62; Resp 16 S; Temp 98.0(TE); Pulse Ox 99% on R/A; aa5 05:34 Body Mass Index 28.19 (81.65 kg, 170.18 cm) rr5 MDM: 05:26 Patient medically screened. tx 07:00 Differential diagnosis: nephrolithiasis, pyelonephritis, UTI. Data reviewed: vital tx signs, nurses notes. 01/20 05:36 Order name: Basic Metabolic Panel; Complete Time: 06:57 tx 01/20 05:36 Order name: Hepatic Function; Complete Time: 06:58 tx 01/20 05:36 Order name: Lipase; Complete Time: 06:58 tx 01/20 05:36 Order name: Urine Microscopic Only; Complete Time: 08:06 tx 01/20 07:22 Order name: Urine Dipstick--Ancillary (enter results); Complete Time: 08:06 mw2 01/20 07:36 Order name: Urine Culture EDMS 01/20 06:57 Order name: CT Stone Protocol; Complete Time: 08:06 tx 01/20 08:46 Order name: Abdomen 1 View (KUB) XRAY fran 01/20 05:36 Order name: IV Saline Lock; Complete Time: 05:40 tx 01/20 05:36 Order name: Labs collected and sent; Complete Time: 05:40 tx 01/20 05:36 Order name: Urine Dipstick-Ancillary (obtain specimen); Complete Time: 07:48 tx 01/20 08:46 Order name: PO challenge: juice; Complete Time: 09:24 [facility] Administered Medications: 05:45 Drug: fentaNYL (PF) 75 mcg Route: IVP; Site: right antecubital; rr5 06:47 Follow up: Response: No adverse reaction; Pain is decreased rr5 05:50 Drug: TORadol 30 mg Route: IVP; Site: right antecubital; rr5 06:47 Follow up: Response: No adverse reaction; Pain is decreased rr5 07:13 Drug: Dilaudid 1 mg Route: IVP; Site: right antecubital; aa5 07:25 Follow up: Response: No adverse reaction; Pain is decreased aa5 09:15 Drug: NS 0.9% 1000 ml Route: IV; Rate: 1 bolus; Site: right antecubital; aa5 11:30 Follow up: Response: No adverse reaction; IV Status: Completed infusion; IV Intake: aj 700ml 09:15 Drug: NS 0.9% 1000 ml Route: IV; Rate: 1 bolus; Site: right antecubital; aa5 11:30 Follow up: IV Status: Completed infusion; IV Intake: 1000ml aj 09:15 Drug: Rocephin - (cefTRIAXone) 1 grams Route: IVPB; Infused Over: 30 mins; Site: right aa5 antecubital; 09:15 Drug: Flomax 0.4 mg Route: PO; aa5 11:00 Follow up: Response: No adverse reaction aa5 09:33 Drug: Dilaudid 1 mg Route: IVP; Site: right antecubital; aa5 09:40 Follow up: Response: No adverse reaction aa5 Disposition: 01/20/18 08:45 Discharged to Home. Impression: Hydronephrosis with renal and ureteral calculous obstruction. - Condition is Stable. - Discharge Instructions: Kidney Stones, Kidney Stones, Hucm-mg-Sasy, Hydronephrosis, Dietary Guidelines to Help Prevent Kidney Stones. - Prescriptions for Tylenol- Codeine #3 300-30 mg Oral Tablet - take 2 tablet by ORAL route every 6 hours As needed; 30 tablet. Zofran 4 mg Oral Tablet - take 1 tablet by ORAL route every 12 hours As needed; 20 tablet. Flomax 0.4 mg Oral Capsule, Sust. Release 24 hr - take 1 capsule by ORAL route once daily 1/2 hour following the same meal each day; 30 capsule. Cipro 500 mg Oral Tablet - take 1 tablet by ORAL route every 12 hours for 7 days; 14 tablet. - Medication Reconciliation Form, Thank You Letter, Antibiotic Education, Prescription Opioid Use form. - Follow up: Private Physician; When: 2 - 3 days; Reason: Recheck today's complaints, Continuance of care, Re-evaluation by your physician. Follow up: Erick Junior MD; When: 2 - 3 days; Reason: Recheck today's complaints, Continuance of care, Re-evaluation by your physician. - Problem is new. - Symptoms have improved. Signatures: Dispatcher [employer] EDMS Dot Solis RN Dickson Barrios MD MD cha Calderon, Audri RN RN aa5 Alberto Moody MD MD wa Roque, Raymond, RN RN rr5 Corrections: (The following items were deleted from the chart) 11:31 08:45 01/20/2018 08:45 Discharged to Home. Impression: Hydronephrosis with renal and aj ureteral calculous obstruction. Condition is Stable. Forms are Medication Reconciliation Form, Thank You Letter, Antibiotic Education, Prescription Opioid Use. Follow up: Private Physician; When: 2 - 3 days; Reason: Recheck today's complaints, Continuance of care, Re-evaluation by your physician. Follow up: Erick Junior; When: 2 - 3 days; Reason: Recheck today's complaints, Continuance of care, Re-evaluation by your physician. Problem is new. Symptoms have improved. fran
[2018-01-20] MEDS ORDERED: TAMSULOSIN 0.4 MG SR CAP ONE (09:13)
[2018-01-20] MEDS ORDERED: NA CHLORIDE 0.9% 2,000 ML ONE (09:13)
[2018-01-20] MEDS ORDERED: CEFTRIAXONE/SWI 1gm 1 GM/10 ML SYR ONE (09:14)
--- NOTE | 2018-01-20 10:26 | RAD REPORT ---
EXAM DESCRIPTION: RAD - Abdomen 1 View (KUB) - 01/20/2018 9:18 am CLINICAL HISTORY: Acute onset right flank pain patient rated pain 10/10 with nausea and vomiting, hi story kidney stones COMPARISON: CT stone protocol January 20 FINDINGS: On a KUB projection no renal calculi are seen. The CT study showed right-sided caliceal ca lculi that are obscured by bowel content or radiographically occult. CT examination showed an obstruc ting 6 mm calculus in the lower right ureter. Based on the CT imaging the stone is superimposed on th e lower right sacral ala near the ala S1 junction. That stone is not clearly defined on KUB imaging a nd may be occult or obscured by the superimposed bone and bowel. No bladder calculus. No acute bowel finding. No significant bony findings IMPRESSION: The patient's known 6 mm obstructing right ureteral calculus is radiographically occult. Patient has small right-side caliceal calculi also occult or obscured by bowel.
== END 2018-01-20 11:31 | disposition home or self-care (01) ==
LOC: ER 05:16
DX: N13.2 Hydronephrosis with renal and ureteral calculous obstruction (principal); Z87.442 Personal history of urinary calculi
CPT/HCPCS: 36415; 74018; 74176; 76377; 80048; 80076; 81003; 81015; 83690; 87086; 87088; 96361; 96374; 96375; 99284; J0696; J1170; J3010; J7030